=== PATIENT | female | born 1945 | race Two or more races ===

== ENCOUNTER 2016-07-31 09:57 | Emergency (ER) | payer OTHER ==
--- NOTE | 2016-07-31 11:36 | EDPHY ---
H & P Time Seen by Provider: 07/31/16 11:25 HPI/ROS: HPI: 71-year-old female presents to emergency department with chief concern rash and pruritus that onset suddenly overnight. Reports rash to her arms and legs bilaterally, as well as her abdomen. Has not had the symptoms before. No aggravating or alleviating factors. Denies fever, chills, recent infections, URI symptoms, shortness of breath, chest pain, abdominal pain, nausea, vomiting , diarrhea. Started 3 new medications within the past week. 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 Applies 4 times daily to her legs and arms. Primary care is [facility] seen a. ROS:10 point review of systems is negative other than as stated in HPI Past Medical/Surgical History: Hypertension, type 2 diabetes Social History: Patient of [facility] seen a Smoking Status: Never smoked Physical Exam: Vital signs stable General: Awake, alert, calm, cooperative. No acute distress. Head: Normalocephalic. Atraumatic. EENT: PERRLA. EOMI. No pallor or injection. Anicteric. No nystagmus. No injection. Normal funduscopic exam. TMs intact bilaterally with normal landmarks. No rhinnorhea, nasal passages clear. Oropharynx without redness, exudates, or lesions. Tonsils 2+ bilaterally, no exudates. Neck: Supple, nontender. No carotid bruit. No lymphadenopathy. Full range of motion. No meningismus. Respiratory: Breathing unlabored. Breath sounds equal bilaterally and clear to auscultation. No adventitious sounds. CV: Chest nontender, atraumatic. Heart rate regular. No murmur, distal pulses 2+ bilaterally. Brisk cap refill all extremities. GI: Abdomen soft, nontender. Bowel sounds normoactive and positive x4 quadrants. Neuro: Alert. Oriented x 3. Speech clear. Nonfocal cranial nerves throughout. Sensation intact all extremities. Skin: Skin warm, dry, erythema to the arms and legs bilaterally. No distinct lesions, swelling, or drainage. Skin turgor normal. Extremities: Full range of motion in all 4 extremities. Pain to palpation of right knee. No erythema, warmth, or swelling. Strength 5+ all extremities. Constitutional: Initial Vital Signs Temperature (C) 36.5 C 07/31/16 10:03 Heart Rate 84 07/31/16 10:03 Respiratory Rate 17 07/31/16 10:03 Blood Pressure 203/126 H 07/31/16 10:03 O2 Sat (%) 92 07/31/16 10:03 O2 Delivery Mode Room Air Allergies/Adverse Reactions: No Known Allergies Allergy (Unverified 07/31/16 10:02) Home Medications: Medication Instructions Recorded Amitriptyline HCl 07/31/16 Atorvastatin Calcium 07/31/16 Voltaren 07/31/16 Medical Decision Making ED Course/Re-evaluation: 71-year-old female presents to emergency department with onset of itching to her arms and legs, her abdomen and buttocks overnight. She began 3 new medications within the past week. She begin applying a gel Voltaren 4 times daily to her arms and legs 2 days ago. I suspect that her symptoms represent a reaction to the new gel she is applying to arms and legs as this is the area of most pruritus, as well as erythema. She is given 12 mg oral Decadron, as well as started on [id number] antihistamine daily while symptoms persist. She also presents to ED with blood pressure 203/126. Repeat blood pressure no evidence of end-organ damage. She has no dizziness, headache, visual changes, shortness of breath, chest pain, nausea or vomiting. She will repeat her blood pressure this evening. She understands she needs to follow up with primary care tomorrow for recheck without fail. Family verbalized understanding of this. She requests a device for her right knee since she will stop using the Voltaren gel. She was given a knee brace. Neurovascular status intact after application Differential Diagnosis: Differential diagnosis includes but is not limited to drug reaction, infection - Data Points Medications Given: Discontinued Medications Dexamethasone (Decadron) 12 mg PO EDNOW ONE Stop: 07/31/16 11:38 Last Admin: 07/31/16 11:48 Dose: 12 mg Departure - Departure Disposition: Home, Routine, Self-Care Clinical Impression: Rash and nonspecific skin eruption, Drug-induced pruritus Condition: Good Instructions: Acute Rash (ED) Additional Instructions: Plan: Daily, use [id number] Zyrtec or Claritin 1st thing in the morning while symptoms persist Use Jhon wrap for right knee while up and about while symptoms persist Follow up with primary care tomorrow for recheck without fail--When you call to schedule appointment, please let the office know you are an "ER follow up" appointment" Plan: Diariamente, use Zyrtec o Claritin sin receta, primer cosa en la manana mientras los sintomas pers[place]. Use la rodillera o la envoltura mientras los sintomas perisitan. Brisa un seguimiento con el proveedor de cuidado medico en la manana para un chequeo sin falta--cuando llame para programar la jose, por favor informeles que usted es un "yulissa jose de seguimiento del cuerto de emergencias" Referrals: Nat Hampton CLIENT ACCOUNT SPECIALIST [Primary Care Provider] - As per Instructions Print Language: Burmese
[2016-07-31] MEDS ORDERED: DEXAMETHASONE 4 MG TAB PO ONE (11:37)
[2016-07-31 11:59] VITALS: BP 175/111; PULSE 80; RESP 18; TEMP 98.2; O2SAT 90
== END 2016-07-31 11:59 | disposition home or self-care (01) ==
DX: R21 Rash and other nonspecific skin eruption (principal); T49.0X5A Adverse effect of local antifungal, anti-infective and anti-inflammatory drugs, initial encounter; L29.9 Pruritus, unspecified; I10 Essential (primary) hypertension; E11.9 Type 2 diabetes mellitus without complications